=== PATIENT | male | born 1990 | race Native Hawaiian/Other Pacific Islander ===

== ENCOUNTER 2018-04-13 11:10 | Emergency (ER) | payer OTHER ==
--- NOTE | 2018-04-13 12:32 | C.PDOC ---
Time Seen by Provider: 04/13/18 11:20 Chief Complaint (Nursing): Abnormal Skin Integrity Past Medical History Vital Signs: Last Vital Signs Temp 98.7 F 04/13/18 11:19 Pulse 95 H 04/13/18 11:19 Resp 18 04/13/18 11:19 BP 141/90 04/13/18 11:19 Pulse Ox 98 04/13/18 11:19 - Medical History PMH: Hypothyroidism - Social History Hx Alcohol Use: No Hx Substance Use: No - Immunization History Hx Tetanus Toxoid Vaccination: No Hx Influenza Vaccination: No Hx Pneumococcal Vaccination: No ED Course And Treatment O2 Sat by Pulse Oximetry: 98 Disposition - Disposition Referrals: [facility] [Outside] Disposition: HOME/ ROUTINE Disposition Time: 12:30 Condition: GOOD Additional Instructions: Follow up with the medical doctor within 1-2 days. Return if worsened, Prescriptions: DiphenhydrAMINE [Benadryl] 25 mg PO QID #28 cap predniSONE [Prednisone] 20 mg PO BID #10 tab Instructions: Skin Rash (DC) - Clinical Impression Clinical Impression: Urticaria
--- NOTE | 2018-04-13 12:48 | C.PDOC ---
History Of Present Illness 27-year-old male, presents to the emergency department with complaints of rash. Patient states that two weeks ago, he developed the "flu" described as cough, congestion and generalized headache/body aches. Patient notes that initially, his symptoms started to improve, but then four days ago, he developed an itchy rash diffusely to his arms, legs, and face. He denies any nausea/vomiting, shortness of breath, known allergies or exposure to allergens, any other associated symptoms. No other complaints at this time. Time Seen by Provider: 04/13/18 11:20 Chief Complaint (Nursing): Abnormal Skin Integrity History Per: Patient History/Exam Limitations: no limitations Onset/Duration Of Symptoms: Days Current Symptoms Are (Timing): Still Present Past Medical History Reviewed: Historical Data, Nursing Documentation, Vital Signs Vital Signs: Last Vital Signs Temp 98.5 F 04/13/18 12:59 Pulse 88 04/13/18 12:59 Resp 16 04/13/18 12:59 BP 135/78 04/13/18 12:59 Pulse Ox 98 04/13/18 22:01 - Medical History PMH: Hypothyroidism Family History: States: No Known Family Hx - Social History Hx Alcohol Use: No Hx Substance Use: No - Immunization History Hx Tetanus Toxoid Vaccination: No Hx Influenza Vaccination: No Hx Pneumococcal Vaccination: No Review Of Systems Constitutional: Positive for: Malaise. Negative for: Fever ENT: Positive for: Nose Congestion. Negative for: Nose Discharge, Throat Pain Respiratory: Positive for: Cough. Negative for: Shortness of Breath Gastrointestinal: Negative for: Nausea, Vomiting Musculoskeletal: Negative for: Neck Pain, Back Pain Skin: Positive for: Rash Neurological: Negative for: Weakness, Numbness, Headache, Dizziness Physical Exam - Physical Exam Appears: Non-toxic, No Acute Distress Skin: Warm, Dry, Rash (erythematous papules to B/L arms and legs. sparing palms and soles) Head: Atraumatic, Normacephalic Eye(s): bilateral: Normal Inspection Nose: Normal Oral Mucosa: Moist Lips: Normal Appearing Neck: Normal ROM, Supple Chest: Symmetrical Cardiovascular: Rhythm Regular, No Friction Rub, No Murmur Respiratory: Normal Breath Sounds, No Accessory Muscle Use Gastrointestinal/Abdominal: Bowel Sounds (active), Soft, No Tenderness Extremity: Normal ROM, No Deformity, No Swelling Neurological/Psych: Oriented x3, Normal Speech ED Course And Treatment O2 Sat by Pulse Oximetry: 98 (RQA) Pulse Ox Interpretation: Normal Disposition - Disposition Referrals: [facility] [Outside] Disposition: HOME/ ROUTINE Disposition Time: 12:30 Condition: GOOD Additional Instructions: Follow up with the medical doctor within 1-2 days. Return if worsened, Prescriptions: DiphenhydrAMINE [Benadryl] 25 mg PO QID #28 cap predniSONE [Prednisone] 20 mg PO BID #10 tab Instructions: Skin Rash (DC) Forms: [employer] (Namibian) - POA Present On Arrival: None - Clinical Impression Clinical Impression: Urticaria, Viral syndrome - Scribe Statement The provider has reviewed the documentation as recorded by the Scribe (Thomas Dawson) All medical record entries made by the Scribe were at my direction and personally dictated by me. I have reviewed the chart and agree that the record accurately reflects my personal performance of the history, physical exam, medical decision making, and the department course for this patient. I have also personally directed, reviewed, and agree with the discharge instructions and disposition.
[2018-04-13 13:00] VITALS: BP 135/78; PULSE 88; RESP 16; TEMP 98.5
[2018-04-13 22:01] VITALS: O2SAT 98
== END 2018-04-13 12:59 | disposition home or self-care (01) ==
LOC: C.ER 11:10
DX: L50.9 Urticaria, unspecified (principal); B34.9 Viral infection, unspecified